=== PATIENT | female | born 1980 | race Caucasian/White ===

== ENCOUNTER 2021-07-17 23:22 | Emergency (ER) | payer MEDICAID, OTHER ==
[~2021-07-17] VITALS: Ht 154.9 cm; Wt 65.8 kg
--- NOTE | 2021-07-17 23:59 | ED Abdominal Pain ---
General Chief Complaint: Abdominal/GI Problems Stated Complaint: NAUSEA Nursing Triage Note: PT AMBULATE TO ROOM FS02 WITH C/O NAUSEA. PT REPORTS THAT SHE "FEELS INFECTION IN MY BODY". PT STATES SHE DRINKS ONE AND A HALF FIFTHS OF VODKA EVERYDAY. PT REPORTS DRINKING HEAVILY EVERYDAY FOR THE LAST YEAR. PT STATES SHE HAD A FRIEND YESTERDAY AND SHE DOES NOT WANT TO TOO. PT REPORTS THAT SHE HAS NOT VOMITED. Source of Information: Patient Exam Limitations: No Limitations History of Present Illness Date Seen by Provider: Jul 17, 2021 Time Seen by Provider: 23:49 Initial Comments 41-year-old female with past medical history of depression and alcohol use disorder coming in due to nausea and feeling like she could be infected. Has been drinking more than fifth of liquor every day for the past year, and had a f riend yesterday from alcohol use, and she is concerned and does not want to . She was driving from [facility], and had immediate concern for her life and that she could because she was feeling a little nauseous. She denies any chest pain, shortness of breath, abdominal pain, vomiting, diarrhea, weakness, numbness, bloody stool, or any other concerns. She says she has intermittent mild dysuria. Has an IUD in place. Allergies and Home Medications Allergies Coded Allergies: No Known Allergies (Verified Allergy, Unknown, 07/17/21) Home Medications Cefdinir 300 Mg Capsule, 300 MG PO BID Prescribed by: JOHN MARTÍNEZ on 07/18/21 0036 Patient Home Medication List Home Medication List Reviewed: Yes Review of Systems Review of Systems Constitutional: No fever EENTM: No Blurred Vision Respiratory: Denies Cough, Denies Shortness of Air Cardiovascular: Denies Chest Pain Gastrointestinal: Denies Abdominal Pain, Denies Diarrhea; Nausea; Denies Vomiting Genitourinary: Denies Burning, Denies Frequency Musculoskeletal: No back pain Skin: No rash Psychiatric/Neurological: Anxiety Endocrine: No Symptoms Reported Hematologic/Lymphatic: No Symptoms Reported All Other Systems Reviewed Negative Unless Noted: Yes Past [id number] Hx Patient Social History Tobacco Use?: No Substance use?: Yes Additional substance use comme: XANAX Substance frequency: Daily Alcohol Use?: Yes Alcohol type: Hard Liquor Alcohol Frequency: Daily Pt feels they are or have been: No Physical Exam Vital Signs Vital Signs - First Documented 07/17/21 23:36 Temp 36.5 Pulse 89 Resp 17 B/P (MAP) 127/92 (104) O2 Delivery Room Air Capillary Refill : Less Than 3 Seconds Height/Weight/BMI Height: '" Weight: lbs. oz. kg; 27.00 BMI Method: General Appearance: WD/WN, no apparent distress HEENT: PERRL/EOMI, normal ENT inspection, pharynx normal Neck: non-tender, full range of motion, supple, normal inspection Respiratory: chest non-tender, lungs clear, normal breath sounds, no respiratory distress Cardiovascular: regular rate, rhythm, no edema, no murmur Gastrointestinal: normal bowel sounds, non tender; No distended, No guarding, No rebound Extremities: normal range of motion, non-tender, normal inspection, no pedal edema, no calf tenderness, normal capillary refill Back: normal inspection, no CVA tenderness Neurologic/Psychiatric: no motor/sensory deficits, alert, normal mood/affect Skin: normal color, warm/dry Lymphatic: no adenopathy Progress/Results/Core Measures Results/Orders Lab Results Laboratory Tests Test 07/17/21 23:55 Range/Units White Blood Count 9.1 4.3-11.0 10^3/uL Red Blood Count 4.56 3.80-5.11 10^6/uL Hemoglobin 15.3 11.5-16.0 g/dL Hematocrit 44 35-52 % Mean Corpuscular Volume 97 80-99 fL Mean Corpuscular Hemoglobin 34 25-34 pg Mean Corpuscular Hemoglobin Concent 35 32-36 g/dL Red Cell Distribution Width 12.6 10.0-14.5 % Platelet Count 379 130-400 10^3/uL Mean Platelet Volume 9.5 9.0-12.2 fL Immature Granulocyte % (Auto) 0 % Neutrophils (%) (Auto) 45 42-75 % Lymphocytes (%) (Auto) 47 H 12-44 % Monocytes (%) (Auto) 5 0-12 % Eosinophils (%) (Auto) 1 0-10 % Basophils (%) (Auto) 1 0-10 % Neutrophils # (Auto) 4.1 1.8-7.8 X 10^3 Lymphocytes # (Auto) 4.3 H 1.0-4.0 X 10^3 Monocytes # (Auto) 0.5 0.0-1.0 X 10^3 Eosinophils # (Auto) 0.1 0.0-0.3 10^3/uL Basophils # (Auto) 0.1 0.0-0.1 10^3/uL Immature Granulocyte # (Auto) 0.0 0.0-0.1 10^3/uL Neutrophils % (Manual) 40 % Lymphocytes % (Manual) 48 % Monocytes % (Manual) 4 % Eosinophils % (Manual) 4 % Basophils % (Manual) 1 % Atypical Lymphocytes 3 % Platelet Estimate ADEQUATE Blood Morphology Comment NORMAL Urine Color YELLOW Urine Clarity TURBID Urine pH 5.5 5-9 Urine Specific [place] >=1.030 1.016-1.022 Urine Protein NEGATIVE NEGATIVE Urine Glucose (UA) NEGATIVE NEGATIVE Urine Ketones NEGATIVE NEGATIVE Urine Nitrite POSITIVE H NEGATIVE Urine Bilirubin NEGATIVE NEGATIVE Urine Urobilinogen 0.2 < = 1.0 MG/DL Urine Leukocyte Esterase NEGATIVE NEGATIVE Urine RBC (Auto) 2+ H NEGATIVE Urine RBC RARE /HPF Urine WBC 5-10 H /HPF Urine Squamous Epithelial Cells 5-10 /HPF Urine Crystals NONE /LPF Urine Bacteria LARGE H /HPF Urine Casts NONE /LPF Urine Mucus LARGE H /LPF Urine Culture Indicated YES Sodium Level 137 135-145 MMOL/L Potassium Level 3.8 3.6-5.0 MMOL/L Chloride Level 103 98-107 MMOL/L Carbon Dioxide Level 22 21-32 MMOL/L Anion Gap 12 5-14 MMOL/L Blood Urea Nitrogen 11 7-18 MG/DL Creatinine 0.67 0.60-1.30 MG/DL Estimat Glomerular Filtration Rate 98 BUN/Creatinine Ratio 16 Glucose Level 103 70-105 MG/DL Calcium Level 9.3 8.5-10.1 MG/DL Corrected Calcium 8.9 8.5-10.1 MG/DL Total Bilirubin 0.3 0.1-1.0 MG/DL Aspartate Amino Transf (AST/SGOT) 22 5-34 U/L Alanine Aminotransferase (ALT/SGPT) 17 0-55 U/L Alkaline Phosphatase 156 H 40-136 U/L Total Protein 7.2 6.4-8.2 GM/DL Albumin 4.5 3.2-4.5 GM/DL Lipase 22 8-78 U/L Smear Scan YES My Orders Orders - JOHN MARTÍNEZ MD Cbc With Automated Diff (07/17/21 23:52) Comprehensive Metabolic Panel (07/17/21 23:52) Lipase (07/17/21 23:52) Ua Culture If Indicated (07/17/21 23:52) Urine Bedside (07/17/21 23:52) Urine Culture (07/17/21 23:55) Cefdinir Capsule (Omnicef Capsule) (07/18/21 00:30) Manual Differential (07/17/21 23:55) Medications Given in ED Current Medications Medications Dose Ordered Sig/Claus Route Start Time Stop Time Status Last Admin Dose Admin Cefdinir 300 mg ONCE ONCE PO 07/18/21 00:30 07/18/21 00:31 DC 07/18/21 00:38 300 MG Vital Signs/I&O 07/17/21 23:36 Temp 36.5 Pulse 89 Resp 17 B/P (MAP) 127/92 (104) O2 Delivery Room Air Blood Pressure Mean: 104 Progress Progress Note : Progress Note 41-year-old female with above history coming in due to nausea and concern for her life given her friend recently from alcohol use. ABCs were intact and vitals were stable on presentation. She was anxious on presentation with a heart rate of 100. She states she had a drink recently and does not feel like she is withdrawing. Abdomen is soft and nontender. She said she was complaining of nausea earlier, but has none right now and does not want any medications. She said she mostly just wants to be checked out to be sure she is not going to imminently , although she says she has no symptoms at this time. She says she is interested at some point in alcohol detox and I gave her resources for [facility] if she would be interested in that at any point. She would not like to do that right now. Basic labs including CMP, lipase, urinalysis, and urine test ordered. Given her nontender abdomen I am not concerned for any acute intra-abdominal process needing CT scan or surgery. She is not complaining of any symptoms that would be concerning for GI bleed. Overall, she seems to be going through a stress reaction from a friend that just . Labs fairly reassuring with a normal CBC and BMP. LFTs normal other than just a slightly elevated alk phos which is nonspecific. Urinalysis concerning for infection including bacteria and positive nitrates. She was given cefdinir here and prescription sent. Overall, I think her clinical picture could be that she was starting to withdrawal, and then drink more just prior to arrival to the emergency department, and is now feeling better. She does have a ride that is able to take her home. She is not clinically intoxicated and is able to have normal con versation and ambulate without difficulty. I believe she is stable for discharge with her family member. She was sent home with strict return precautions. Prescription was sent to [facility] which she requested. Departure Impression Primary Impression: Alcohol use disorder Additional Impressions: Nausea UTI (urinary tract infection) Qualified Codes: N30.00 - Acute cystitis without hematuria Disposition: HOME, SELF-CARE Condition: Stable Departure-Patient Inst. Decision time for Depature: 00:44 Referrals: NO,LOCAL PHYSICIAN (PCP/Family) Primary Care Physician Patient Instructions: Nausea and Vomiting, Adult (DC), Cirrhosis (DC), Urinary Tract Infection, Adult (DC) Add. Discharge Instructions: You were seen in the emergency department for nausea and feeling like you had an infection. Your labs look okay and it does not look like you have an infection. Although, if you continue drinking alcohol, eventually you will get very sick and it will cause her liver to fail. You can go to [facility] for alcohol detox if you are interested in that at any point. If you have any concerns he can come back to the emergency department please. You also have a UTI and a prescription was sent to [facility] in [place] on [address] All discharge instructions reviewed with patient and/or family. Voiced understanding. Scripts Cefdinir (Cefdinir) 300 Mg Capsule 300 MG PO BID for 5 Days, #10 CAP 0 Refills Prov: JOHN MARTÍNEZ MD 07/18/21 JOHN MARTÍNEZ MD Jul 17, 2021 23:59
[2021-07-18 00:12] LABS: BILIRUBIN,URINE NEGATIVE (NEGATIVE); CLARITY,URINE TURBID; COLOR,URINE YELLOW; GLUCOSE, URINE (UA) NEGATIVE (NEGATIVE); KETONES,URINE NEGATIVE (NEGATIVE); LEUKOCYTE ESTERASE ,URINE NEGATIVE (NEGATIVE); NITRITE,URINE POSITIVE (NEGATIVE); PH,URINE 5.5 (5-9); PROTEIN,URINE NEGATIVE (NEGATIVE)
[2021-07-18 00:25] LABS: BACTERIA,URINE LARGE /HPF; RBC,URINE RARE /HPF
[2021-07-18] MEDS ORDERED: CEFDINIR 300 MG (OMNICEF) CAP PO ONE (00:30)
[2021-07-18 00:34] LABS: HEMATOCRIT 44 % (35-52); HEMOGLOBIN 15.3 g/dL (11.5-16.0); LYMPHOCYTES % (AUTO) 47 % (12-44); MEAN CORPUSCULAR HEMOGLOBIN 34 pg (25-34); MEAN CORPUSCULAR HGB CONC 35 g/dL (32-36); MEAN CORPUSCULAR VOLUME 97 fL (80-99); MEAN PLATELET VOLUME 9.5 fL (9.0-12.2); MONOCYTES % (AUTO) 5 % (0-12); NEUTROPHILS % (AUTO) 45 % (42-75); PLATELET COUNT 379 10^3/uL (130-400); WHITE BLOOD COUNT 9.1 10^3/uL (4.3-11.0)
[2021-07-18 00:35] LABS: BASOPHILS # (AUTO) 0.1 10^3/uL (0.0-0.1); BASOPHILS % (AUTO) 1 % (0-10); EOSINOPHILS # (AUTO) 0.1 10^3/uL (0.0-0.3); EOSINOPHILS % (AUTO) 1 % (0-10); LYMPHOCYTES # (AUTO) 4.3 X 10^3 (1.0-4.0); MONOCYTES # (AUTO) 0.5 X 10^3 (0.0-1.0); NEUTROPHILS # (AUTO) 4.1 X 10^3 (1.8-7.8); SMEAR SCAN COMMENT YES
[2021-07-18 00:36] LABS: ATYPICAL LYMPHOCYTES 3 %; BASOPHILS % (MANUAL) 1 %; EOSINOPHILS % (MANUAL) 4 %; LYMPHOCYTES % (MANUAL) 48 %; MONOCYTES % (MANUAL) 4 %; NEUTROPHILS % (MANUAL) 40 %
[2021-07-18] MEDS ORDERED: CEFD300C3 PO (00:36)
[2021-07-18 00:37] LABS: PLATELET ESTIMATE ADEQUATE; RBC MORPH NORMAL
[2021-07-18 00:39] LABS: ALBUMIN 4.5 GM/DL (3.2-4.5); BILIRUBIN,TOTAL 0.3 MG/DL (0.1-1.0); CALCIUM 9.3 MG/DL (8.5-10.1); CREATININE SERUM 0.67 MG/DL (0.60-1.30); POTASSIUM 3.8 MMOL/L (3.6-5.0); TOTAL PROTEIN 7.2 GM/DL (6.4-8.2)
[2021-07-18 00:52] VITALS: BP 124/70
== END 2021-07-18 00:52 | disposition home or self-care (01) ==
LOC: ER FS 23:27
DX: N39.0 Urinary tract infection, site not specified (principal); Z72.89 Other problems related to lifestyle; Z97.5 Presence of (intrauterine) contraceptive device
CPT/HCPCS: 36415; 80053; 81000; 83690; 84703; 85007; 85027; 87077; 87088